=== PATIENT | female | born 1980 | race Caucasian/White ===

== ENCOUNTER 2016-11-22 19:55 | Emergency (ER) | payer BC ==
[2016-11-22 20:09] VITALS: BP 136/84; PULSE 82; TEMP 98.1; BMI 27.3
--- NOTE | 2016-11-22 20:10 | PDOC ---
History of Present Illness - General History Source: Patient Exam Limitations: No Limitations - History of Present Illness Initial Comments: 11/22/16 20:21 A portion of this note was documented by scribe services under my direction. I have reviewed the details of the note, within reason, and agree with the documentation. The case summary and management plan written by me. Assessment and plan: This is a 36-year-old female with long history of chronic low back pain. At one point patient had an MRI in the past and was told by her orthopedist that she needed back surgery however patient did not want the surgery and was able to improve her symptoms with physical therapy and pain management. Patient said pain was manageable in tell this morning when she woke up with severe pain and is gone progressively worse throughout the day. Patient has been taking ibuprofen without relief. Patient's exam is consistent with acute exacerbation of her sciatica Patient was given Toradol and a one-time dose of Decadron here in the emergency room IM Patient was given prescriptions for Naprosyn and Flexeril and will follow-up with her orthopedist. <Lolis Greco I - Last Filed: 11/22/16 20:21> - General History Source: Patient Exam Limitations: No Limitations - History of Present Illness Initial Comments: 11/22/16 20:26 The patient is a 36 year old female, with significant past medical history of chronic lower back pain, who presents today complaining of 1 day of lower back/ buttock pain that radiates left foot. The patient states that she had difficulty getting out of bed this morning secondary to the lower back pain. Today, the pain has been the worst she has ever experienced. It is exacerbated secondary to walking/moving in an uncomfortable position. She reports taking ibuprofen without relief. She has had this pain previously and has been seeing ortho, who wanted to perform surgery on her back. She notes that she has done physical therapy for this pain in the past with some relief. Denies any trauma. Allergies: None reported Social Hx:Tobacco use. ROS General: No fevers or chills, no weakness, no weight loss HEENT: No change in vision. No sore throat,. No ear pain CardioVascular: No chest pain or shortness of breath Respiratory:No cough, or wheezing. Gastrointestinal: no nausea, vomiting, diarrhea or constipation, No rectal bleeding Genitourinary: No dysuria, hematuria, or frequency Musculoskeletal: +lower back pain that radiates to the lower extremities bilaterally. No joint or muscle pain or swelling Neurologic: No headache, vertigo, dizziness or loss of consciousness Psychiatric: nor depression Skin: No rashes or easy bruising Endocrine: no increased thirst or abnormal weight change Allergic: no skin or latex allergy All other systems reviewed and normal Physical Exam GENERAL: The patient is awake, alert, and fully oriented, in no acute distress. HEAD: Normal with no signs of trauma. EYES: Pupils equal, round and reactive to light, extraocular movements intact, sclera anicteric, conjunctiva clear. EXTREMITIES: Tenderness on palpation of the lower lumbar upper sacral spine with left paraspinal spasm. Tenderness over the left sciatic notch. + straight leg raise test at about 15 degrees. Neurovascular is in tact. NEUROLOGICAL: Normal speech, normal gait. PSYCH: Normal mood, normal affect. SKIN: Warm, Dry, normal turgor, no rashes or lesions noted. <Susanne Kwon - Last Filed: 11/22/16 20:27> - General Chief Complaint: Pain, Acute Stated Complaint: LOWER BACK PAIN RADIATING DOWN LEGS Time Seen by Provider: 11/22/16 20:01 Past History - Past Medical History Asthma: No Cancer: No Cardiac Disorders: No Diabetes: No HTN: No Seizures: No Thyroid Disease: No - Immunization History Td Vaccination: Yes Immunization Up to Date: Yes - Psycho/Social/Smoking Cessation Hx Anxiety: No Suicidal Ideation: No Smoking Status: No Smoking History: Current every day smoker Have you smoked in the past 12 months: Yes Number of Cigarettes Smoked Daily: 5 Cigars Per Day: 0 Information on smoking cessation initiated: Yes 'Breaking Loose' booklet given: 11/22/16 Hx Alcohol Use: No Drug/Substance Use Hx: No Substance Use Type: None Hx Substance Use Treatment: No <Lolis Greco I - Last Filed: 11/22/16 20:21> <Susanne Kwon - Last Filed: 11/22/16 20:27> - Past Medical History Allergies/Adverse Reactions: Allergies Allergy/AdvReac Type Severity Reaction Status Date / Time No Known Drug Allergies Allergy Verified 11/22/16 19:56 Home Medications: Ambulatory Orders Cyclobenzaprine HCl [Flexeril 10 mg] 10 mg PO BID #21 tablet 11/22/16 Naproxen [Naprosyn -] 500 mg PO BID #60 tablet 11/22/16 *Physical Exam - Vital Signs Last Vital Signs Temp Pulse Resp BP Pulse Ox 98.1 F 82 16 136/84 99 11/22/16 19:58 11/22/16 19:58 11/22/16 19:58 11/22/16 19:58 11/22/16 19:58 <Lolis Greco I - Last Filed: 11/22/16 20:21> - Vital Signs Last Vital Signs Temp Pulse Resp BP Pulse Ox 98.1 F 82 16 136/84 99 11/22/16 19:58 11/22/16 19:58 11/22/16 19:58 11/22/16 19:58 11/22/16 19:58 <Susanne Kwon - Last Filed: 11/22/16 20:27> *DC/Admit/Observation/Transfer - Discharge Dispostion Admit: No <Lolis Greco I - Last Filed: 11/22/16 20:21> - Attestations Scribe Attestion: 11/22/16 20:26 Documentation prepared by SAUD Moreira, acting as certified medical transcriptionist for Lolis Greco MD. <Susanne Kwon - Last Filed: 11/22/16 20:27> Diagnosis at time of Disposition: Sciatica of left side - Discharge Dispostion Disposition: HOME Condition at time of disposition: Stable - Prescriptions Prescriptions: Cyclobenzaprine HCl [Flexeril 10 mg] 10 mg PO BID #21 tablet Naproxen [Naprosyn -] 500 mg PO BID #60 tablet - Patient Instructions Printed Discharge Instructions: Sciatica, Sciatica (Alternative Therapy) Additional Instructions: I have sent prescriptions to the pharmacy for a pain/anti-inflammatory medication,, Naprosyn. Take this medication 1 tablet twice a day. In addition to that there is a prescription for a muscle relaxant that you can take 3 times a day. Note that the muscle relaxant will make you drowsy so try to limit to the nighttime hours or if you take it during the day do not drive or do things that require your concentration. If not improved in 1 week follow-up with your orthopedist. Return to the emergency department immediately with ANY new, persistent or worsening symptoms. Continue any medications as previously prescribed by your physician. You should follow up with your primary doctor as soon as possible regarding today's emergency department visit. . Please make sure your doctor reviews the results of your emergency evaluation. Thank you for coming to the Emergency Department today for your care. It was a pleasure to see you today. Please note that your evaluation is INCOMPLETE until you follow-up with your doctor.
[2016-11-22] MEDS ORDERED: KETOROLAC TROMETHAMINE 60 MG/2 ML VIAL IM ONE (20:17)
[2016-11-22] MEDS ORDERED: DEXAMETHASONE SOD PHOSPHATE 10 MG/1 ML VIAL IM ONE (20:17)
[2016-11-22] MEDS ORDERED: KETOROLAC TROMETHAMINE 60 MG/2 ML VIAL ONE (20:26)
[2016-11-22] MEDS ORDERED: DEXAMETHASONE SOD PHOSPHATE 10 MG/1 ML VIAL ONE (20:26)
== END 2016-11-22 20:45 | disposition home or self-care (01) ==
LOC: FER 19:55
PROC: 3E0233Z Introduction of Anti-inflammatory into Muscle, Percutaneous Approach (ICD-10-PCS; principal; 2016-11-22)
PROC: 3E023GC Introduction of Other Therapeutic Substance into Muscle, Percutaneous Approach (ICD-10-PCS; 2016-11-22)
DX: M54.32 Sciatica, left side (principal)
CPT/HCPCS: 99281-25

== ENCOUNTER 2019-10-03 08:07 | Emergency (ER) | payer BC ==
[2019-10-03 08:17] VITALS: TEMP 98.6; BMI 28.2
[2019-10-03] MEDS ORDERED: ACETAMINOPHEN 1000 MG/100 ML VIAL (NON FORMULARY) IVPB ONE (08:45)
--- NOTE | 2019-10-03 08:48 | PDOC ---
History of Present Illness - General Chief Complaint: Back Pain Stated Complaint: lower back pain Time Seen by Provider: 10/03/19 08:08 - History of Present Illness Initial Comments: 10/03/19 11:22 39 years old with known history of previous disc disease last imaging approximately 8 years ago does have some mild chronic weakness to the left lower extremity presents to the ED with 1 to 2-day history of very severe atraumatic low back discomfort and leg weakness symptoms are moderate to severe persistent constant pain is 8-9 out of 10 sharp stabbing radiating down left leg. Past History - Past Medical History Allergies/Adverse Reactions: Allergies Allergy/AdvReac Type Severity Reaction Status Date / Time No Known Drug Allergies Allergy Verified 10/03/19 08:08 Home Medications: Ambulatory Orders Amoxicillin/Potassium Clav [Augmentin 875-125 Tablet] 1 each PO BID 10/03/19 Diazepam [Valium] 2 mg PO DAILY #4 tablet MDD 1 10/03/19 Methylprednisolone [Medrol Dose Deric] 4 mg PO ASDIR #21 tablet 10/03/19 Oseltamivir Phosphate [Tamiflu] 75 mg PO BID 10/03/19 Asthma: No Cancer: No Cardiac Disorders: No COPD: No Diabetes: No HTN: No Seizures: No Thyroid Disease: No - Immunization History Td Vaccination: Yes Immunization Up to Date: Yes - Psycho Social/Smoking Cessation Hx Smoking Status: No Smoking History: Never smoked Have you smoked in the past 12 months: No Number of Cigarettes Smoked Daily: 0 Cigars Per Day: 0 'Breaking Loose' booklet given: 11/22/16 Hx Alcohol Use: No Drug/Substance Use Hx: No Substance Use Type: None Hx Substance Use Treatment: No Review of Systems - Review of Systems Comments:: 10/03/19 11:24 ROS: A complete review of 10 out of 10 review of systems is taken and is negative apart from what is previously mentioned below and in the HPI. *Physical Exam - Vital Signs Last Vital Signs Temp Pulse Resp BP Pulse Ox 98.6 F 92 H 18 112/80 98 10/03/19 08:07 10/03/19 08:07 10/03/19 08:07 10/03/19 08:07 10/03/19 08:07 - Physical Exam 10/03/19 11:24 Vitals: Triage Vital signs reviewed General Appearance: No acute distress, well nourished well developed, Head: Atraumatic, Cardiac: Regular rate and rhythym, no murmurs, no rubs, no gallops, Lungs: Clear to auscultation bilateral, good air movement bilaterally, Abdomen: Soft, non distended, normal bowel sounds, non tender to palpation Genitourinary: Rectal: Exam deferred Extremities: Full range of motion to all extremities Skin: Warm and dry, no rashes or lesions, no rash, no petechiae Neuro: AOX3; cranial Nerves 2-12 grossly intact,4 out of 5 strength with plantarflexion to the left foot 4 out of 5 strength with extension at the left knee reflexes intact bilaterally Psych: Normal mood, normal affect ED Treatment Course - LABORATORY CBC & Chemistry Diagram: 10/03/19 08:55 10/03/19 08:55 - RADIOLOGY Radiology Studies Ordered: Category Date Time Status LUMBAR SPINE MRI W/O CONTRAST [MRI] Stat MRI 10/03/19 08:44 Ordered Medical Decision Making - Medical Decision Making 10/03/19 08:Weakness with flexion at the left foot and extension at the knee reflexes present left less than right Case discussed with Dr. Meza neurosurgery. Recommend stat LS spine MRI MRI ordered pain medications ordered 10/03/19 11:25 MRI demonstrates large L5 disc protrusion with S1 nerve impingement Case discussed with neurosurgery patient is a candidate for microdiscectomy discussed with patient at this time she would prefer to try a course of steroids and follow-up with neurosurgery as an outpatient she states the weakness in her leg is more chronic she has had this before and is not just acute for the last 2 days We will discharge home with Medrol Dosepak and 3-day course of need for strict return instructions discussed with patient. Discharge - Discharge Information Problems reviewed: Yes Clinical Impression/Diagnosis: Sciatica Qualifiers: Laterality: left Qualified Code(s): M54.32 - Sciatica, left side Condition: Stable Disposition: HOME - Admission No - Follow up/Referral Referrals: Shawn Dias MD, [facility] [Staff Physician] - - Patient Discharge Instructions Patient Printed Discharge Instructions: Sciatica Additional Instructions: Medrol Dosepak as prescribed. Valium as prescribed at night. Follow-up this week with neurosurgery. Return to the emergency department immediately for any incontinence worsening weakness or for any concerns. - Post Discharge Activity
[2019-10-03] MEDS ORDERED: ACETAMINOPHEN INJECTION 100 ML IVPB ONE (09:03)
[2019-10-03 09:10] LABS: BASO % 0.4 % (0-2.0); EOS % 1.3 % (0-4.5); HEMATOCRIT 39.6 % (32.4-45.2); HEMOGLOBIN 13.2 GM/dl (10.7-15.3); LYMPH % 30.1 % (8-40); MCH 29.6 pg (25.7-33.7); MCHC 33.3 g/dl (32.0-36.0); MEAN CELL VOLUME 89.1 fl (80-96); MEAN PLT VOLUME 8.2 fl (7.5-11.1); NEUT % 61.2 % (42.8-82.8); PLATELET COUNT 204 K/MM3 (134-434); RBC 4.45 M/mm3 (3.60-5.2); RDW 12.9 % (11.6-15.6); WHITE BLOOD COUNT 4.4 K/mm3 (4.0-10.8)
[2019-10-03 09:20] LABS: ALBUMIN 3.9 g/dl (3.4-5.0); BILIRUBIN,TOTAL 0.5 mg/dl (0.2-1); CALCIUM 8.6 mg/dl (8.5-10); CREATININE 0.6 mg/dl (0.55-1.3); POTASSIUM 3.9 mmol/L (3.5-5.1); TOT PROT 7.1 g/dl (6.4-8.2)
[2019-10-03 09:28] LABS: EPITHELIAL CELLS MANY /hpf
[2019-10-03] MEDS ORDERED: diazePAM 2 MG TABLET PO ONE (10:06)
[2019-10-03] MEDS ORDERED: diazePAM 2 MG TABLET ONE (10:10)
[2019-10-03] MEDS ORDERED: KETOROLAC TROMETHAMINE 30 MG/1 ML VIAL IM ONE (10:30)
[2019-10-03] MEDS ORDERED: DEXAMETHASONE SOD PHOSPHATE 4 MG/1 ML VIAL IM ONE (10:30)
[2019-10-03] MEDS ORDERED: KETOROLAC TROMETHAMINE 30 MG/1 ML VIAL ONE (10:38)
[2019-10-03] MEDS ORDERED: DEXAMETHASONE SOD PHOSPHATE 4 MG/1 ML VIAL ONE (10:38)
[2019-10-03] MEDS ORDERED: DEXAMETHASONE SOD PHOSPHATE 4 MG/1 ML VIAL IVPUSH ONE (10:39)
[2019-10-03] MEDS ORDERED: KETOROLAC TROMETHAMINE 30 MG/1 ML VIAL IVPUSH ONE (10:39)
[2019-10-03 12:03] VITALS: BP 100/66; PULSE 65
== END 2019-10-03 12:08 | disposition home or self-care (01) ==
LOC: FER 08:07
PROC: 3E033NZ Introduction of Analgesics, Hypnotics, Sedatives into Peripheral Vein, Percutaneous Approach (ICD-10-PCS; principal; 2019-10-03)
PROC: 3E033GC Introduction of Other Therapeutic Substance into Peripheral Vein, Percutaneous Approach (ICD-10-PCS; 2019-10-03)
PROC: 3E0333Z Introduction of Anti-inflammatory into Peripheral Vein, Percutaneous Approach (ICD-10-PCS; 2019-10-03)
DX: M54.32 Sciatica, left side (principal)
CPT/HCPCS: 36415; 72148-TC; 80053; 81003; 81015; 81025; 85025; 87086; 99283-25; J0131